=== PATIENT | female | born 1970 | race African-American/Black ===

== ENCOUNTER 2016-06-25 21:42 | Emergency (ER) | payer OTHER ==
[~2016-06-25] VITALS: Ht 162.6 cm; Wt 77.1 kg
--- NOTE | 2016-06-25 23:09 | PHYS DOC ---
Past Medical History Past Medical History: Hypertension, P.U.D. Additional Past Medical Histor: chronic neck and back pain, carpal tunnel Past Surgical History: No Surgical History Alcohol Use: None Drug Use: None Adult General Chief Complaint Chief Complaint: HEADACHE HPI HPI Patient is a 46 year old female who presents with complaint of right-sided headache. Patient states that she has history of migraine headaches. Patient's current headache started yesterday and has been constant since onset. Patient states that she has associated nausea area due to pain is throbbing and along the right side of her head. Patient states that her symptoms are consistent with prior history of migraine headaches. Patient denies any associated fever, vision loss, unilateral weakness, chest pain, or shortness of breath. The patient states that she took Tylenol yesterday which provided mild relief of symptoms, however this did not resolve her headache. Patient has not taken any medications for her symptoms today. Review of Systems Review of Systems Constitutional: Denies fever or chills [] Eyes: Denies change in visual acuity, redness, or eye pain [] HENT: Denies nasal congestion or sore throat [] Respiratory: Denies cough or shortness of breath [] Cardiovascular: No additional information not addressed in HPI [] GI: Nausea, denies abdominal pain, vomiting, bloody stools or diarrhea [] : Denies dysuria or hematuria [] Musculoskeletal: Denies back pain or joint pain [] Integument: Denies rash or skin lesions [] Neurologic: Headache, denies focal weakness or sensory changes [] Current Medications Current Medications Current Medications Medications (Trade) Dose Ordered Sig/Eduardo Start Time Stop Time Status Last Admin Dose Admin Diphenhydramine HCl (Benadryl) 25 mg 1X ONCE 06/25/16 23:30 06/25/16 23:31 DC 06/25/16 23:31 25 MG Ketorolac Tromethamine (Toradol Im) 60 mg 1X ONCE 06/25/16 23:30 06/25/16 23:31 DC 06/25/16 23:30 60 MG Prochlorperazine Edisylate (Compazine) 10 mg 1X ONCE 06/25/16 23:30 06/25/16 23:31 DC 06/25/16 23:30 10 MG Allergies Allergies Allergies Coded Allergies Type Severity Reaction Last Updated Verified acetaminophen Allergy Intermediate 06/25/16 No codeine Allergy Intermediate 09/15/15 No hydrocodone Allergy Intermediate 09/15/15 No meloxicam Allergy Intermediate 09/15/15 No ranitidine Allergy Intermediate 09/15/15 No Physical Exam Physical Exam Constitutional: Alert, afebrile, appears in minimal discomfort. [] HENT: Normocephalic, atraumatic, bilateral external ears normal, oropharynx moist, no oral exudates, nose normal. [] Eyes: PERRLA, EOMI, conjunctiva normal, no discharge. [] Neck: Normal range of motion, no tenderness, supple, no stridor. [] Cardiovascular:Heart rate regular rhythm, no murmur [] Lungs & Thorax: Bilateral breath sounds clear to auscultation [] Abdomen: Bowel sounds normal, soft, no tenderness, no masses, no pulsatile masses. [] Skin: Warm, dry, no erythema, no rash. [] Back: No tenderness, no CVA tenderness. [] Extremities: No tenderness, no cyanosis, no clubbing, ROM intact, no edema. [] Neurologic: Alert and oriented X 3, normal motor function, normal sensory function, no focal deficits noted. [] Current Patient Data Vital Signs Vital Signs Date Time Temp Pulse Resp B/P Pulse Ox O2 Delivery O2 Flow Rate FiO2 06/25/16 22:45 98.0 66 20 170/100 100 Room Air 98.0 Lab Values Laboratory Tests Test 06/25/16 23:15 White Blood Count 7.3x10^3/uL (4.0-11.0) Red Blood Count 4.11x10^6/uL (3.50-5.40) Hemoglobin 12.9g/dL (12.0-15.5) Hematocrit 39.3% (36.0-47.0) Mean Corpuscular Volume 96fL (79-100) Mean Corpuscular Hemoglobin 32pg (25-35) Mean Corpuscular Hemoglobin Concent 33g/dL (31-37) Red Cell Distribution Width 13.7% (11.5-14.5) Platelet Count 179x10^3/uL (140-400) Neutrophils (%) (Auto) 59% (31-73) Lymphocytes (%) (Auto) 31% (24-48) Monocytes (%) (Auto) 8% (0-9) Eosinophils (%) (Auto) 1% (0-3) Basophils (%) (Auto) 0% (0-3) Neutrophils # (Auto) 4.3x10^3uL (1.8-7.7) Lymphocytes # (Auto) 2.2x10^3/uL (1.0-4.8) Monocytes # (Auto) 0.6x10^3/uL (0.0-1.1) Eosinophils # (Auto) 0.1x10^3/uL (0.0-0.7) Basophils # (Auto) 0.0x10^3/uL (0.0-0.2) Sodium Level 143mmol/L (136-145) Potassium Level 3.8mmol/L (3.5-5.1) Chloride Level 106mmol/L (98-107) Carbon Dioxide Level 27mmol/L (21-32) Anion Gap 10 (6-14) Blood Urea Nitrogen 17mg/dL (7-20) Creatinine 0.8mg/dL (0.6-1.0) Estimated GFR (Cockcroft-Gault) 92.6 Glucose Level 92mg/dL (70-99) Calcium Level 9.3mg/dL (8.5-10.1) Magnesium Level 1.7mg/dL (1.8-2.4) L Laboratory Tests 06/25/16 23:15 Laboratory Tests 06/25/16 23:15 EKG EKG Not performed [] Radiology/Procedures Radiology/Procedures Not performed [] Course & Med Decision Making Course & Med Decision Making Pertinent Labs and Imaging studies reviewed. (See chart for details) Patient was given Toradol, Compazine, and Benadryl in the emergency department. On reevaluation, patient states her symptoms have improved and she feels much better. Recommended the patient continue on Tylenol and ibuprofen as needed. Advised follow-up with primary doctor in 3 days and return to emergency department for any worsening symptoms. Patient was understanding and in agreement with treatment plan. Dragon Disclaimer Dragon Disclaimer This electronic medical record was generated, in whole or in part, using a voice recognition dictation system. Departure Departure Impression: Primary Impression: Migraine headache Disposition: HOME, SELF-CARE Condition: IMPROVED Referrals: UNKNOWN PCP NAME (PCP) Patient Instructions: Migraine Headache Additional Instructions: Follow-up with your primary doctor in 3 days. Return to the emergency department for any worsening symptoms. Problem Qualifiers Primary Impression: Migraine headache Migraine type: unspecified Status migrainosus presence: without status migrainosus Intractability: not intractable Qualified Code: G43.909 - Migraine, unspecified, not intractable, without status migrainosus ADRIANA BROWN MD Jun 25, 2016 23:09
[2016-06-25] MEDS ORDERED: PROCHLORPERAZINE 10 MG/2 ML VIAL. IM ONE (23:30)
[2016-06-25] MEDS ORDERED: KETOROLAC TROMETHAMINE 60 MG/2 ML SYRINGE. IM ONE (23:30)
[2016-06-25] MEDS ORDERED: DIPHENHYDRAMINE 50 MG/ML VIAL IM ONE (23:30)
[2016-06-25 23:34] LABS: BASO % 0 % (0-3); EOS % 1 % (0-3); HEMATOCRIT 39.3 % (36.0-47.0); HEMOGLOBIN 12.9 g/dL (12.0-15.5); LYMPH # 2.2 x10^3/uL (1.0-4.8); LYMPH % 31 % (24-48); MEAN CORPUSCULAR HEMOGLOBIN 32 pg (25-35); MEAN CORPUSCULAR HGB CONC 33 g/dL (31-37); MEAN CORPUSCULAR VOLUME 96 fL (79-100); MONO % 8 % (0-9); NEUT % 59 % (31-73); PLATELET COUNT 179 x10^3/uL (140-400); RED BLOOD COUNT 4.11 x10^6/uL (3.50-5.40); RED CELL DISTRIBUTION WIDTH 13.7 % (11.5-14.5); WHITE BLOOD COUNT 7.3 x10^3/uL (4.0-11.0)
[2016-06-25 23:37] LABS: CALCIUM 9.3 mg/dL (8.5-10.1); CREATININE 0.8 mg/dL (0.6-1.0); GFR 92.6; MAGNESIUM 1.7 mg/dL (1.8-2.4); POTASSIUM 3.8 mmol/L (3.5-5.1)
[2016-06-26] VITALS: BP 155/86
== END 2016-06-26 00:20 | disposition home or self-care (01) ==
LOC: ER 21:42
DX: G43.909 Migraine, unspecified, not intractable, without status migrainosus (principal); I10 Essential (primary) hypertension; G89.29 Other chronic pain; Z88.5 Allergy status to narcotic agent; Z88.8 Allergy status to other drugs, medicaments and biological substances
CPT/HCPCS: 36415; 80048; 83735; 85027; 96372; 99284; J0780; J1200; J1885

== ENCOUNTER 2016-07-26 13:27 | Emergency (ER) | payer OTHER ==
[~2016-07-26] VITALS: Ht 162.6 cm; Wt 77.1 kg
[2016-07-26] MEDS ORDERED: IV NORMAL SALINE 1000ML BAG 1,000 ML IV ONE (14:15)
[2016-07-26] MEDS ORDERED: DIPHENHYDRAMINE 50 MG/ML VIAL IVP ONE (14:15)
[2016-07-26] MEDS ORDERED: METOCLOPRAMIDE HCL 10 MG/2 ML VIAL. IV ONE (14:15)
--- NOTE | 2016-07-26 14:26 | PHYS DOC ---
Past Medical History Past Medical History: Depression, Hypertension, Migraines, P.U.D. Additional Past Medical Histor: chronic neck and back pain, carpal tunnel Past Surgical History: Other Additional Past Surgical Histo: carpal tunnel surgery Alcohol Use: None Drug Use: None Adult General Chief Complaint Chief Complaint: HEADACHE HPI HPI 38-year-old female presenting to the emergency department today with a migraine similar to her previous migraines. She describes the pain in her head as frontal radiating to the right. It is moderate. She denies vision changes numbness weakness or tingling. Started yesterday. The pain is constant. Review of systems is negative for chest pain shortness of breath nausea vomiting fevers chills. She denies meningismus, neck stiffness. All other review of systems is negative unless otherwise noted in history of present illness. Review of Systems Review of Systems SEE ABOVE. Current Medications Current Medications Current Medications Medications (Trade) Dose Ordered Sig/Eduardo Start Time Stop Time Status Last Admin Dose Admin Diphenhydramine HCl 50 mg 50 mg 1X ONCE 07/26/16 14:15 07/26/16 14:16 DC 07/26/16 14:40 50 MG Metoclopramide HCl (Reglan) 20 mg 1X ONCE 07/26/16 14:15 07/26/16 14:16 DC 07/26/16 14:38 20 MG Sodium Chloride (Iv Sodium Chloride 0.9% 1000ml Bag) 1,000 ml @ 1,000 mls/hr 1X ONCE 07/26/16 14:15 07/26/16 15:14 07/26/16 14:45 1,000 MLS/HR Allergies Allergies Allergies Coded Allergies Type Severity Reaction Last Updated Verified acetaminophen Allergy Intermediate 07/26/16 No codeine Allergy Intermediate 07/26/16 No hydrocodone Allergy Intermediate 07/26/16 No meloxicam Allergy Intermediate 07/26/16 No pork derived (porcine) Allergy Intermediate 07/26/16 Yes ranitidine Allergy Intermediate 07/26/16 No shellfish derived Allergy Intermediate 07/26/16 Yes lactase Allergy Unknown 07/26/16 Yes Physical Exam Physical Exam Constitutional: Well developed, well nourished, no acute distress, non-toxic appearance. [] HENT: Normocephalic, atraumatic, bilateral external ears normal, oropharynx moist, no oral exudates, nose normal. Eyes: PERRLA, EOMI, conjunctiva normal, no discharge. Neck: Normal range of motion, no tenderness, supple, no stridor. Cardiovascular:Heart rate regular rhythm, no murmur [] Lungs & Thorax: Bilateral breath sounds clear to auscultation Abdomen: Bowel sounds normal, soft, no tenderness, no masses, no pulsatile masses. Skin: Warm, dry, no erythema, no rash. Back: No tenderness, no CVA tenderness. [] Extremities: No tenderness, no cyanosis, no clubbing, ROM intact, no edema. Neurologic: Mental status: Awake oriented and alert x3 Cranial nerves: Extraocular movements intact, eyebrows donavan bilaterally smile symmetric, uvula elevation, shoulder shrug intact, tongue protrusion normal Sensation: equal and normal in all extremities Strength: 5/5 in upper and lower extremities bilaterally Psychologic: Affect normal, judgement normal, mood normal. Current Patient Data Vital Signs Vital Signs Date Time Temp Pulse Resp B/P Pulse Ox O2 Delivery O2 Flow Rate FiO2 07/26/16 13:37 98.0 68 20 140/95 98 Room Air 98.0 EKG EKG [] Radiology/Procedures Radiology/Procedures [] Course & Med Decision Making Course & Med Decision Making Pertinent Labs and Imaging studies reviewed. (See chart for details) [] 38-year-old female presenting with signs and symptoms similar to previous migraine. IV fluids along with nausea and pain medication given in the emergency department which resolved her symptoms. She was subsequent discharged home to follow up with her PCP. Dragon Disclaimer Dragon Disclaimer This electronic medical record was generated, in whole or in part, using a voice recognition dictation system. Departure Departure Impression: Primary Impression: Migraine headache Disposition: 01 HOME, SELF-CARE Condition: STABLE Referrals: SHANI HICKEY (PCP) Patient Instructions: Migraine Headache Additional Instructions: Thank you for allowing us to participate in your care today. Followup with your primary care physician in 3 days if your symptoms do not improve. If you do not have a primary care provider you can ask for a list of our primary care providers. Return to the emergency department you have any new or concerning findings. This should be evaluated by the primary care physician and any necessary consulting services for continued management within a few days after discharge. Return to emergency room if you have any new or concerning symptoms including but not limited to fever, chills, nausea, vomiting, intractable pain, any new rashes, chest pain, shortness of air, uncontrolled bleeding, difficulty breathing, and/or vision loss. AUDREY CASTANEDA MD Jul 26, 2016 14:26
[2016-07-26 15:45] VITALS: BP 143/75
== END 2016-07-26 15:50 | disposition home or self-care (01) ==
LOC: ER 13:27
DX: G43.909 Migraine, unspecified, not intractable, without status migrainosus (principal); F32.9 Major depressive disorder, single episode, unspecified; I10 Essential (primary) hypertension; G89.29 Other chronic pain; Z88.5 Allergy status to narcotic agent; Z91.011 Allergy to milk products; Z91.013 Allergy to seafood; Z91.018 Allergy to other foods
CPT/HCPCS: 96361; 96374; 96375; 99284; J1200; J2765; J7030

== ENCOUNTER 2016-12-18 19:58 | Emergency (ER) | payer OTHER ==
[2016-12-18] MEDS ORDERED: diphenhydrAMINE 50 MG/ML VIAL IVP ONE (20:15)
[2016-12-18] MEDS ORDERED: PROCHLORPERAZINE 10 MG/2 ML VIAL. IV ONE (20:15)
[2016-12-18] MEDS ORDERED: IV NORMAL SALINE 1000ML BAG 1,000 ML IV ONE (20:15)
[2016-12-18] MEDS ORDERED: KETOROLAC TROMETHAMINE 30 MG/ML INJ. IV ONE (20:30)
--- NOTE | 2016-12-18 20:41 | PHYS DOC ---
Past Medical History Past Medical History: Asthma, Depression, Hypertension, Migraines, P.U.D. Additional Past Medical Histor: chronic neck and back pain, carpal tunnel Past Surgical History: Other Additional Past Surgical Histo: carpal tunnel surgery Alcohol Use: None Drug Use: None Adult General Chief Complaint Chief Complaint: HEADACHE HPI HPI Patient is a 46 year old female presenting to the emergency department for evaluation of headache nausea and vomiting. She has a history of chronic migraine headaches and this feels the same as prior migraine headaches with no new symptoms. She has some nonbloody nonbilious emesis but she denies any fevers chills neck stiffness unilateral weakness numbness tingling or vision changes. She does not know of any particular cocktail that works her does not work. Patient is in no obvious distress with normal vital signs. Review of Systems Review of Systems Constitutional: Denies fever or chills [] Respiratory: Denies cough or shortness of breath [] Cardiovascular: No additional information not addressed in HPI [] GI: Denies abdominal pain, nausea, vomiting, bloody stools or diarrhea [] Musculoskeletal: Denies back pain or joint pain [] Integument: Denies rash or skin lesions [] Neurologic: Denies headache, focal weakness or sensory changes [] Current Medications Current Medications Current Medications Medications (Trade) Dose Ordered Sig/Eduardo Start Time Stop Time Status Last Admin Dose Admin Diphenhydramine HCl (Benadryl) 50 mg 1X ONCE 12/18/16 20:15 12/18/16 20:16 DC 12/18/16 20:27 50 MG Ketorolac Tromethamine (Toradol) 30 mg 1X ONCE 12/18/16 20:30 12/18/16 20:31 DC 12/18/16 20:22 30 MG Prochlorperazine Edisylate (Compazine) 10 mg 1X ONCE 12/18/16 20:15 12/18/16 20:16 DC 12/18/16 20:25 10 MG Sodium Chloride 1,000 ml @ 1,000 mls/hr 1X ONCE 12/18/16 20:15 12/18/16 21:14 12/18/16 20:22 1,000 MLS/HR Allergies Allergies Allergies Coded Allergies Type Severity Reaction Last Updated Verified acetaminophen Allergy Intermediate 07/26/16 No codeine Allergy Intermediate 07/26/16 No hydrocodone Allergy Intermediate 07/26/16 No meloxicam Allergy Intermediate 12/18/16 No pork derived (porcine) Allergy Intermediate 07/26/16 Yes ranitidine Allergy Intermediate 07/26/16 No shellfish derived Allergy Intermediate 07/26/16 Yes lactase Allergy Unknown 07/26/16 Yes Physical Exam Physical Exam Constitutional: Well developed, well nourished, no acute distress, non-toxic appearance. [] Cardiovascular:Heart rate regular rhythm, no murmur [] Lungs & Thorax: Bilateral breath sounds clear to auscultation [] Abdomen: Bowel sounds normal, soft, no tenderness, no masses, no pulsatile masses. [] Skin: Warm, dry, no erythema, no rash. [] Back: No tenderness, no CVA tenderness. [] Extremities: No tenderness, no cyanosis, no clubbing, ROM intact, no edema. [] Neurologic: Alert and oriented X 3, normal motor function, normal sensory function, no focal deficits noted. [] Current Patient Data Vital Signs Vital Signs Date Time Temp Pulse Resp B/P (MAP) Pulse Ox O2 Delivery O2 Flow Rate FiO2 12/18/16 20:03 98.2 78 18 154/82 (106) 97 Room Air 98.2 EKG EKG [] Radiology/Procedures Radiology/Procedures [] Course & Med Decision Making Course & Med Decision Making Patient will get Toradol Compazine and Benadryl IV fluids and then be reassessed. On reassessment 10 minutes after getting medications her pain is down to a 5 and she is able to tolerate fluids with no difficulty. He has repeat normal neurologic exam and given she is feeling better with a benign physical exam she' ll be discharged with Zofran and Excedrin and told to follow with a neurologist and come back to the ER sooner with worsening pain fevers vomiting or other general concerns. Dragon Disclaimer Dragon Disclaimer This electronic medical record was generated, in whole or in part, using a voice recognition dictation system. Departure Departure Impression: Primary Impression: Migraine headache Disposition: 01 HOME, SELF-CARE Condition: GOOD Referrals: SENIA ARMSTRONG MD Patient Instructions: Migraine Headache Additional Instructions: TAKE 400MG OF IBUPROFEN EVERY 6 HOURS FOR PAIN. Scripts Ondansetron (ZOFRAN ODT) 4 Mg Tab.rapdis 4 MG PO BID Y for NAUSEA/VOMITING, #14 TAB Prov: KEVIN GARCÍA DO 12/18/16 Problem Qualifiers Primary Impression: Migraine headache Migraine type: without aura Status migrainosus presence: without status migrainosus Intractability: not intractable Qualified Codes: G43.009 - Migraine without aura, not intractable, without status migrainosus KEVIN GARCÍA DO Dec 18, 2016 20:41
[2016-12-18] MEDS ORDERED: ONDA4TAB10 PO (20:48)
[2016-12-18 20:59] VITALS: BP 145/79
== END 2016-12-18 21:14 | disposition home or self-care (01) ==
LOC: ER 19:58
DX: G43.909 Migraine, unspecified, not intractable, without status migrainosus (principal); I10 Essential (primary) hypertension; J45.909 Unspecified asthma, uncomplicated; F32.9 Major depressive disorder, single episode, unspecified; G89.29 Other chronic pain; Z87.11 Personal history of peptic ulcer disease; Z88.6 Allergy status to analgesic agent; Z88.5 Allergy status to narcotic agent; Z91.013 Allergy to seafood; Z88.4 Allergy status to anesthetic agent; Z91.011 Allergy to milk products; Z88.8 Allergy status to other drugs, medicaments and biological substances
CPT/HCPCS: 96361; 96374; 96375; 99284; J0780; J1200; J1885; J7030

== ENCOUNTER 2017-04-02 09:58 | Emergency (ER) | payer MEDICARE, OTHER ==
[~2017-04-02] VITALS: Ht 162.6 cm; Wt 81.3 kg
[~2017-04-02 09:58] MED LIST: ONDA4TAB10 PO
[2017-04-02] MEDS ORDERED: LIDO:MAALOX:DONNATAL 1:1:1 15 ML SINGLE DOSE SWSW ONE (10:30)
[2017-04-02] MEDS ORDERED: IV NORMAL SALINE 1000ML BAG 1,000 ML IV ONE (10:30)
[2017-04-02] MEDS ORDERED: ONDANSETRON PF 4 MG/2 ML VIAL. IV ONE (10:30)
[2017-04-02 10:39] LABS: BASO % 0 % (0-3); EOS % 0 % (0-3); HEMATOCRIT 43.4 % (36.0-47.0); HEMOGLOBIN 14.5 g/dL (12.0-15.5); LYMPH # 2.6 x10^3/uL (1.0-4.8); LYMPH % 23 % (24-48); MEAN CORPUSCULAR HEMOGLOBIN 32 pg (25-35); MEAN CORPUSCULAR HGB CONC 33 g/dL (31-37); MEAN CORPUSCULAR VOLUME 96 fL (79-100); MONO % 6 % (0-9); NEUT % 70 % (31-73); PLATELET COUNT 253 x10^3/uL (140-400); RED BLOOD COUNT 4.51 x10^6/uL (3.50-5.40); RED CELL DISTRIBUTION WIDTH 13.7 % (11.5-14.5); WHITE BLOOD COUNT 11.2 x10^3/uL (4.0-11.0)
[2017-04-02 10:44] LABS: BILIRUBIN,URINE NEGATIVE (NEG); GLUCOSE,URINE NEGATIVE (NEG); NITRITE,URINE NEGATIVE (NEG); PH,URINE 6.5; PROTEIN,URINE NEGATIVE (NEG-TRACE); UROBILINOGEN,URINE 0.2 mg/dL (0.2 mg/dL)
[2017-04-02 10:50] LABS: BARBITURATES NEG (NEG); BENZODIAZEPINES NEG (NEG); CANNABINOIDS POS (NEG); COCAINE NEG (NEG); METHADONE NEG (NEG); OPIATES NEG (NEG); PHENCYCLIDINE NEG (NEG)
[2017-04-02 10:54] LABS: BACTERIA,URINE FEW /HPF (0-FEW); SQUAMOUS EPITHELIAL CELL,UR FEW /LPF; WBC,URINE OCC /HPF (0-4)
[2017-04-02 10:57] LABS: CREATININE 0.8 mg/dL (0.6-1.0); GFR 92.2; POTASSIUM 3.5 mmol/L (3.5-5.1)
[2017-04-02 11:03] LABS: ALBUMIN 3.8 g/dL (3.4-5.0); ALBUMIN/GLOBULIN RATIO 0.9 (1.0-1.7); TOTAL BILIRUBIN 0.2 mg/dL (0.2-1.0); TOTAL PROTEIN 8.2 g/dL (6.4-8.2)
--- NOTE | 2017-04-02 11:14 | RAD ---
Abdominal ultrasound, 04/02/2017: History: Right upper quadrant pain The gallbladder is within normal limits in size. There is no sonographic evidence of cholelithiasis. The common hepatic duct is of normal caliber. The visualized portions of the liver, pancreas, spleen and both kidneys are unremarkable. The abdominal aorta and inferior vena cava show no abnormality. No free fluid is evident in the abdomen. IMPRESSION: No significant abnormality is detected.
[2017-04-02] MEDS ORDERED: ONDA4TAB10 SL (12:28)
[2017-04-02] MEDS ORDERED: OMEP20CA9 PO (12:28)
--- NOTE | 2017-04-02 12:28 | PHYS DOC ---
Past Medical History Past Medical History: Asthma, Depression, Hypertension, Migraines, P.U.D. Additional Past Medical Histor: chronic neck and back pain, carpal tunnel Past Surgical History: Other Additional Past Surgical Histo: carpal tunnel surgery Alcohol Use: None Drug Use: None Adult General Chief Complaint Chief Complaint: GI PROBLEM HPI HPI Patient is a 47 year old female with history of hypertension, asthma, depression, acid reflux, stomach ulcers, who presents today with 8 out of 10 intermittent throbbing right upper quadrant abdominal pain for the last 1 month. Patient's also complaining of intermittent episodes of nausea and vomiting. Denies any fever. She states she is an appointment with the GI specialist on May 02, 2017. Review of Systems Review of Systems Constitutional: Denies fever or chills [] Eyes: Denies change in visual acuity, redness, or eye pain [] HENT: Denies nasal congestion or sore throat [] Respiratory: Denies cough or shortness of breath [] Cardiovascular: No additional information not addressed in HPI [] GI: Right upper quadrant abdominal pain with nausea and vomiting, denies bloody stools or diarrhea [] : Denies dysuria or hematuria [] Musculoskeletal: Denies back pain or joint pain [] Integument: Denies rash or skin lesions [] Neurologic: Denies headache, focal weakness or sensory changes [] All other systems were reviewed and found to be within normal limits, except as documented in this note. Current Medications Current Medications Current Medications Medications (Trade) Dose Ordered Sig/Eduardo Start Time Stop Time Status Last Admin Dose Admin Multi-Ingredient Mouthwash/Gargle (Gi Cocktail Single Dose) 15 ml 1X ONCE 04/02/17 10:30 04/02/17 10:31 DC 04/02/17 10:35 15 ML Ondansetron HCl (Zofran) 4 mg 1X ONCE 04/02/17 10:30 04/02/17 10:31 DC 04/02/17 10:34 4 MG Sodium Chloride 1,000 ml @ 1,000 mls/hr 1X ONCE 04/02/17 10:30 04/02/17 11:29 DC 04/02/17 10:28 1,000 MLS/HR Allergies Allergies Allergies Coded Allergies Type Severity Reaction Last Updated Verified acetaminophen Allergy Intermediate 07/26/16 No codeine Allergy Intermediate 07/26/16 No hydrocodone Allergy Intermediate 07/26/16 No meloxicam Allergy Intermediate 12/18/16 No pork derived (porcine) Allergy Intermediate 07/26/16 Yes ranitidine Allergy Intermediate 07/26/16 No shellfish derived Allergy Intermediate 07/26/16 Yes lactase Allergy Unknown 07/26/16 Yes Physical Exam Physical Exam Constitutional: Well developed, well nourished, no acute distress, non-toxic appearance. [] HENT: Normocephalic, atraumatic, bilateral external ears normal, oropharynx moist, no oral exudates, nose normal. [] Eyes: PERRLA, EOMI, conjunctiva normal, no discharge. [] Neck: Normal range of motion, no tenderness, supple, no stridor. [] Cardiovascular:Heart rate regular rhythm, no murmur [] Lungs & Thorax: Bilateral breath sounds clear to auscultation [] Abdomen: Bowel sounds normal, soft, no tenderness, no masses, no pulsatile masses. [] Skin: Warm, dry, no erythema, no rash. [] Back: No tenderness, no CVA tenderness. [] Extremities: No tenderness, no cyanosis, no clubbing, ROM intact, no edema. [] Neurologic: Alert and oriented X 3, normal motor function, normal sensory function, no focal deficits noted. [] Psychologic: Affect normal, judgement normal, mood normal. [] Current Patient Data Vital Signs Vital Signs Date Time Temp Pulse Resp B/P (MAP) Pulse Ox O2 Delivery O2 Flow Rate FiO2 04/02/17 10:36 69 20 103/66 (78) 100 Room Air 04/02/17 10:05 98.4 98.4 Lab Values Laboratory Tests Test 04/02/17 10:07 04/02/17 10:27 04/02/17 10:31 Urine Collection Type Void Urine Color Yellow Urine Clarity Clear Urine pH 6.5 Urine Specific Sp[place] 1.010 Urine Protein Negative mg/dL (NEG-TRACE) Urine Glucose (UA) Negative mg/dL (NEG) Urine Ketones (Stick) Negative mg/dL (NEG) Urine Blood Moderate (NEG) Urine Nitrite Negative (NEG) Urine Bilirubin Negative (NEG) Urine Urobilinogen Dipstick 0.2 mg/dL (0.2 mg/dL) Urine Leukocyte Esterase Negative (NEG) Urine RBC 3-5 /HPF (0-2) Urine WBC Occ /HPF (0-4) Urine Squamous Epithelial Cells Few /LPF Urine Bacteria Few /HPF (0-FEW) Urine Hyaline Casts Occasional /HPF Urine Mucus Slight /LPF Urine Opiates Screen Neg (NEG) Urine Methadone Screen Neg (NEG) Urine Barbiturates Neg (NEG) Urine Phencyclidine Screen Neg (NEG) Urine Amphetamine/Methamphetamine Neg (NEG) Urine Benzodiazepines Screen Neg (NEG) Urine Cocaine Screen Neg (NEG) Urine Cannabinoids Screen Pos (NEG) Urine Ethyl Alcohol Neg (NEG) White Blood Count 11.2 x10^3/uL (4.0-11.0) H Red Blood Count 4.51 x10^6/uL (3.50-5.40) Hemoglobin 14.5 g/dL (12.0-15.5) Hematocrit 43.4 % (36.0-47.0) Mean Corpuscular Volume 96 fL (79-100) Mean Corpuscular Hemoglobin 32 pg (25-35) Mean Corpuscular Hemoglobin Concent 33 g/dL (31-37) Red Cell Distribution Width 13.7 % (11.5-14.5) Platelet Count 253 x10^3/uL (140-400) Neutrophils (%) (Auto) 70 % (31-73) Lymphocytes (%) (Auto) 23 % (24-48) L Monocytes (%) (Auto) 6 % (0-9) Eosinophils (%) (Auto) 0 % (0-3) Basophils (%) (Auto) 0 % (0-3) Neutrophils # (Auto) 7.8 x10^3uL (1.8-7.7) H Lymphocytes # (Auto) 2.6 x10^3/uL (1.0-4.8) Monocytes # (Auto) 0.7 x10^3/uL (0.0-1.1) Eosinophils # (Auto) 0.0 x10^3/uL (0.0-0.7) Basophils # (Auto) 0.0 x10^3/uL (0.0-0.2) Sodium Level 140 mmol/L (136-145) Potassium Level 3.5 mmol/L (3.5-5.1) Chloride Level 103 mmol/L (98-107) Carbon Dioxide Level 27 mmol/L (21-32) Anion Gap 10 (6-14) Blood Urea Nitrogen 13 mg/dL (7-20) Creatinine 0.8 mg/dL (0.6-1.0) Estimated GFR (Cockcroft-Gault) 92.2 BUN/Creatinine Ratio 16 (6-20) Glucose Level 92 mg/dL (70-99) Calcium Level 10.0 mg/dL (8.5-10.1) Total Bilirubin 0.2 mg/dL (0.2-1.0) Aspartate Amino Transferase (AST) 14 U/L (15-37) L Alanine Aminotransferase (ALT) 14 U/L (14-59) Alkaline Phosphatase 89 U/L (46-116) Total Protein 8.2 g/dL (6.4-8.2) Albumin 3.8 g/dL (3.4-5.0) Albumin/Globulin Ratio 0.9 (1.0-1.7) L Lipase 133 U/L (73-393) Ethyl Alcohol Level < 10 mg/dL (0-10) POC Urine HCG, Qualitative Hcg negative (Negative) Laboratory Tests 04/02/17 10:27 Laboratory Tests 04/02/17 10:27 EKG EKG [] Radiology/Procedures Radiology/Procedures [] Course & Med Decision Making Course & Med Decision Making Pertinent Labs and Imaging studies reviewed. (See chart for details) This is a 47-year-old female patient with right upper quadrant abdominal pain with known history of stomach ulcer. She is on omeprazole. CBC CMP lipase urine analysis with no acute findings. Abdominal ultrasound was negative for any acute findings. Highly suspect her pain is from her chronic stomach ulcers. Recommended following up with the GI specialist, she states she has an appointment on May 02, 2017. Discharged with Zofran and omeprazole. Provided return precautions and discharged in stable condition. Dragon Disclaimer Dragon Disclaimer This electronic medical record was generated, in whole or in part, using a voice recognition dictation system. Departure Departure Impression: Primary Impression: Right upper quadrant abdominal pain Disposition: 01 HOME, SELF-CARE Condition: STABLE Referrals: SHANI HICKEY (PCP) Follow-up with your own doctor as soon as you can Patient Instructions: Abdominal Pain (Nonspecific) Additional Instructions: You were seen for ongoing abdominal pain. Ultrasound was negative for any acute findings, your labs were negative for any acute findings. Please follow-up with the GI specialist as scheduled on May 02, 2017. Return to the ED symptoms worsen. Scripts Omeprazole (OMEPRAZOLE) 20 Mg Capsule.dr 1 CAP PO DAILY, #30 CAP 5 Refills Prov: VANESA CARDENAS APRN 04/02/17 Ondansetron (ZOFRAN ODT) 4 Mg Tab.rapdis 1 TAB SL Q8HRS, #15 TAB Prov: VANESA CARDENAS APRN 04/02/17 VANESA CARDENAS APRN Apr 02, 2017 12:28
[2017-04-02 12:48] VITALS: BP 130/80
== END 2017-04-02 12:55 | disposition home or self-care (01) ==
LOC: ER 09:58
DX: R10.11 Right upper quadrant pain (principal); R11.2 Nausea with vomiting, unspecified; J45.909 Unspecified asthma, uncomplicated; F32.9 Major depressive disorder, single episode, unspecified; I10 Essential (primary) hypertension; G43.909 Migraine, unspecified, not intractable, without status migrainosus; G89.29 Other chronic pain; K21.9 Gastro-esophageal reflux disease without esophagitis; Z88.6 Allergy status to analgesic agent; Z88.5 Allergy status to narcotic agent; Z91.011 Allergy to milk products; Z87.11 Personal history of peptic ulcer disease; Z91.013 Allergy to seafood; Z91.018 Allergy to other foods
CPT/HCPCS: 36415; 76700; 80053; 80307; 81001; 81025; 83690; 85025; 96361; 96374; 99285; G0480; J2405; J7030; G0479

== ENCOUNTER 2017-08-08 18:10 | Emergency (ER) | payer MEDICARE, OTHER ==
[2017-08-08 18:51] LABS: ADD MAN DIFF? NO
[2017-08-08 18:54] LABS: BASO # 0.1 x10^3/uL (0.0-0.2); BASO % 1 % (0-3); EOS % 0 % (0-3); HEMATOCRIT 41.3 % (36.0-47.0); LYMPH # 2.2 x10^3/uL (1.0-4.8); LYMPH % 20 % (24-48); MEAN CORPUSCULAR HEMOGLOBIN 32 pg (25-35); MEAN CORPUSCULAR HGB CONC 34 g/dL (31-37); MEAN CORPUSCULAR VOLUME 95 fL (79-100); MONO # 0.5 x10^3/uL (0.0-1.1); MONO % 4 % (0-9); NEUT # 8.5 x10^3uL (1.8-7.7); NEUT % 76 % (31-73); PLATELET COUNT 198 x10^3/uL (140-400); RED BLOOD COUNT 4.35 x10^6/uL (3.50-5.40); RED CELL DISTRIBUTION WIDTH 14.6 % (11.5-14.5); WHITE BLOOD COUNT 11.3 x10^3/uL (4.0-11.0)
[2017-08-08 19:09] LABS: ETHANOL < 10 mg/dL (0-10)
[2017-08-08] MEDS: diphenhydrAMINE 50 MG/ML VIAL IVP (19:10)
[2017-08-08] MEDS: PROMETHAZINE 25 MG in IV NORMAL SALINE 50ML 50 ML IV (19:10)
[2017-08-08] MEDS: fentaNYL PF VIAL 100 MCG/2 ML VIAL IV ×2 (19:10→21:18)
[2017-08-08] MEDS: IV NORMAL SALINE 1000ML BAG 1,000 ML IV (19:11)
[2017-08-08 19:13] LABS: ANION GAP 13 (6-14); BLOOD UREA NITROGEN 7 mg/dL (7-20); BUN/CREATININE RATIO 9 (6-20); CALCIUM 9.2 mg/dL (8.5-10.1); CARBON DIOXIDE 23 mmol/L (21-32); CHLORIDE 108 mmol/L (98-107); CREATININE 0.8 mg/dL (0.6-1.0); GFR 92.2; GLUCOSE 123 mg/dL (70-99); POTASSIUM 3.6 mmol/L (3.5-5.1); SODIUM 144 mmol/L (136-145)
[2017-08-08 19:16] LABS: TROPONINI < 0.017 ng/mL (0.000-0.055)
[2017-08-08 19:22] LABS: NT-PRO BNP 170 pg/mL (0-124)
[2017-08-08 19:28] LABS: ALBUMIN 3.6 g/dL (3.4-5.0); ALK PHOS 70 U/L (46-116); ALT (SGPT) 15 U/L (14-59); AST (SGOT) 16 U/L (15-37); CREATINE KINASE 139 U/L (26-192); LIPASE 100 U/L (73-393); MAGNESIUM 1.7 mg/dL (1.8-2.4); TOTAL BILIRUBIN 0.6 mg/dL (0.2-1.0); TOTAL PROTEIN 7.1 g/dL (6.4-8.2)
[2017-08-08] MEDS: KETOROLAC 30 MG/ML INJ. IV (21:19)
[2017-08-08] MEDS: SUMAtriptan. 6 MG/0.5 ML VIAL SQ (22:07)
== END 2017-08-08 22:35 | disposition home or self-care (01) ==
LOC: ER 18:10
DX: G43.909 Migraine, unspecified, not intractable, without status migrainosus (principal); Z88.5 Allergy status to narcotic agent; Z91.041 Radiographic dye allergy status; Z91.011 Allergy to milk products; Z88.8 Allergy status to other drugs, medicaments and biological substances; Z91.018 Allergy to other foods; Z88.6 Allergy status to analgesic agent
CPT/HCPCS: 36415; 70450; 80053; 82550; 83690; 83735; 83880; 84484; 85025; 93005; 96365; 96372; 96375; 96376; 99285-25; G0480; J1200; J1885; J2550; J3010; J3030; J7030

== ENCOUNTER → 2017-08-26 | Outpatient (CLI) | payer MEDICARE, OTHER ==
[2017-08-26] MEDS: GADOBUTROL 7.5 MMOL/7.5 ML VIAL IV (10:27)
== END | disposition home or self-care (01) ==
LOC: MRI 15:56
DX: H54.7 Unspecified visual loss (principal); I10 Essential (primary) hypertension; G43.909 Migraine, unspecified, not intractable, without status migrainosus
CPT/HCPCS: 70553; A9585

== ENCOUNTER 2017-10-11 18:39 | Emergency (ER) | payer MEDICARE, OTHER | END 2017-10-11 19:57 | disposition left against medical advice (07) | LOC: ER 19:57 | DX: R51 Headache (principal); Z53.21 Procedure and treatment not carried out due to patient leaving prior to being seen by health care provider ==

== ENCOUNTER → 2017-10-17 | Outpatient (CLI) | payer MEDICARE, MEDICAID, OTHER ==
[2017-10-17 17:24] LABS: GLUCOSE 94 mg/dL (70-99)
[2017-10-17 17:24] LABS: BLOOD UREA NITROGEN 8 mg/dL (7-20); CREATININE 0.8 mg/dL (0.6-1.0); GFR 92.2
[2017-10-17 18:00] LABS: BARBITURATES NEG (NEG); BENZODIAZEPINES POS (NEG); CANNABINOIDS POS (NEG); COCAINE NEG (NEG); METHADONE NEG (NEG); OPIATES NEG (NEG); PHENCYCLIDINE NEG (NEG)
[2017-10-17 18:03] LABS: AMPHETAMINE/METHAMPHETAMINE NEG (NEG); ETHANOL, URINE NEG (NEG)
[2017-10-17 18:50] LABS: SEDIMENTATION RATE 10 (0-25)
== END | disposition home or self-care (01) ==
LOC: LAB 16:08
DX: R51 Headache (principal); I10 Essential (primary) hypertension; J45.909 Unspecified asthma, uncomplicated; K21.9 Gastro-esophageal reflux disease without esophagitis; Z87.11 Personal history of peptic ulcer disease; Z79.899 Other long term (current) drug therapy
CPT/HCPCS: 36415; 80307; 82565; 82947; 84520; 85651

== ENCOUNTER 2017-12-18 22:37 | Emergency (ER) | payer MEDICARE, MEDICAID ==
[~2017-12-18] VITALS: Ht 162.6 cm; Wt 81.2 kg
[~2017-12-18 22:37] MED LIST changes: +OMEP20CA9 PO; +ONDA4TAB10 SL; +SUMA50TA3 PO
[2017-12-18 22:58] VITALS: BP 123/75
== END 2017-12-18 23:24 | disposition left against medical advice (07) ==
LOC: ER 22:37
DX: R42 Dizziness and giddiness (principal); Z53.21 Procedure and treatment not carried out due to patient leaving prior to being seen by health care provider

== ENCOUNTER 2019-08-08 14:58 | Emergency (ER) | payer MEDICAID, MEDICARE ==
[~2019-08-08] VITALS: Ht 160 cm; Wt 95.4 kg
[~2019-08-08 14:58] MED LIST changes: +OMEP20CA16 PO; -OMEP20CA9 PO
[2019-08-08 15:10] VITALS: BP 160/75
[2019-08-08] MEDS ORDERED: BUDE10.2 IH (15:31)
--- NOTE | 2019-08-08 15:32 | PHYS DOC ---
Past Medical History Past Medical History: Anxiety, Asthma, Hypertension, P.U.D., Other Additional Past Medical Histor: panic attack, carpel tunnel bilateral, sciatica, bulging disc cervial Past Surgical History: Other Additional Past Surgical Histo: bilater carpel tunnel, left foot Smoking Status: Former Smoker Alcohol Use: None Drug Use: None Adult General Chief Complaint Chief Complaint: ANXIETY/PANIC ATTACK HPI HPI Patient is a 49 year old female with history of anxiety, hypertension, asthma, who presents to the ED today to be evaluated for an anxiety attack after having a verbal altercation with a female partner. Patient denies any suicidal or homicidal ideations. Review of Systems Review of Systems Constitutional: Denies fever or chills [] Eyes: Denies change in visual acuity, redness, or eye pain [] HENT: Denies nasal congestion or sore throat [] Respiratory: Denies cough or shortness of breath [] Cardiovascular: No additional information not addressed in HPI [] GI: Denies abdominal pain, nausea, vomiting, bloody stools or diarrhea [] : Denies dysuria or hematuria [] Musculoskeletal: Denies back pain or joint pain [] Integument: Denies rash or skin lesions [] Neurologic: Denies headache, focal weakness or sensory changes [] Psych: Reports anxiety All other systems were reviewed and found to be within normal limits, except as documented in this note. Allergies Allergies Allergies Coded Allergies Type Severity Reaction Last Updated Verified acetaminophen Allergy Intermediate 07/26/16 No codeine Allergy Intermediate 07/26/16 No hydrocodone Allergy Intermediate 07/26/16 No meloxicam Allergy Intermediate 12/18/16 No pork derived (porcine) Allergy Intermediate 07/26/16 Yes ranitidine Allergy Intermediate 07/26/16 No shellfish derived Allergy Intermediate 07/26/16 Yes lactase Allergy Unknown 07/26/16 Yes Physical Exam Physical Exam Constitutional: Well developed, well nourished, no acute distress, non-toxic appearance. [] HENT: Normocephalic, atraumatic, bilateral external ears normal, oropharynx moist, no oral exudates, nose normal. [] Eyes: PERRLA, EOMI, conjunctiva normal, no discharge. [] Neck: Normal range of motion, no tenderness, supple, no stridor. [] Cardiovascular:Heart rate regular rhythm, no murmur [] Lungs & Thorax: Bilateral breath sounds clear to auscultation [] Abdomen: Bowel sounds normal, soft, no tenderness, no masses, no pulsatile masses. [] Skin: Warm, dry, no erythema, no rash. [] Back: No tenderness, no CVA tenderness. [] Extremities: No tenderness, no cyanosis, no clubbing, ROM intact, no edema. [] Neurologic: Alert and oriented X 3, normal motor function, normal sensory function, no focal deficits noted. [] Psychologic: Affect normal, judgement normal, mood normal. [] EKG EKG [] Radiology/Procedures Radiology/Procedures [] Course & Med Decision Making Course & Med Decision Making Pertinent Labs and Imaging studies reviewed. (See chart for details) This is a 49-year-old female patient presenting to the ED today for an anxiety attack after having a verbal altercation with a female partner. Patient has no suicidal or homicidal ideations. She was discharged to home with instructions to follow-up with [facility]. She requested Inhaler prescription, Rx provided. Dragon Disclaimer Dragon Disclaimer This electronic medical record was generated, in whole or in part, using a voice recognition dictation system. Departure Departure Impression: Primary Impression: Anxiety Disposition: 01 HOME, SELF-CARE Condition: STABLE Referrals: SHANI HICKEY (PCP) follow up in 1-2 weeks Patient Instructions: Anxiety and Panic Attacks, [id number] Additional Instructions: You were seen for an anxiety attack. Please follow-up with [facility] in 1 week or your own doctor Scripts Budesonide/Formoterol Fumarate (SYMBICORT 160-4.5 MCG INHALER) 10.2 Gm Hfa.aer.ad 2 PUFF IH BID, #1 INHALER 3 Refills Prov: VANESA CARDENAS APRN 08/08/19 VANESA CARDENAS APRN Aug 08, 2019 15:31
== END 2019-08-08 15:55 | disposition home or self-care (01) ==
LOC: ER 14:58
DX: F41.9 Anxiety disorder, unspecified (principal); J45.909 Unspecified asthma, uncomplicated; I10 Essential (primary) hypertension; Z87.891 Personal history of nicotine dependence; Z88.5 Allergy status to narcotic agent; Z88.6 Allergy status to analgesic agent; Z91.013 Allergy to seafood; Z91.011 Allergy to milk products; Z88.8 Allergy status to other drugs, medicaments and biological substances; Z91.018 Allergy to other foods
CPT/HCPCS: 99283

== ENCOUNTER 2021-03-31 10:39 | Emergency (ER) | payer MEDICAID ==
[~2021-03-31] VITALS: Ht 162.6 cm; Wt 103.6 kg
[~2021-03-31 10:39] MED LIST changes: +BUDE10.2 IH
--- NOTE | 2021-03-31 11:10 | PHYS DOC ---
Past Medical History Past Medical History: Anxiety, Asthma, Hypertension, P.U.D., Other Additional Past Medical Histor: panic attack, carpel tunnel bilateral, sciatica, bulging disc cervial (CONRADO TOMPKINS APRN) Past Surgical History: Other Additional Past Surgical Histo: bilater carpel tunnel, left foot (CONRADO TOMPKINS APRN) Smoking Status: Former Smoker Alcohol Use: None Drug Use: None (CONRADO TOMPKINS APRN) General Adult EDM: Chief Complaint: BLOODY STOOL HPI: HPI: Patient is a 51-year-old female that presents today with a 4-day complaint of blood in stool. Patient states that she has some upper abdominal pain but she is noted blood in her stool over the last 4 days. Patient states that she had a colonoscopy in February 2021 at [facility] and she states that it was normal, she states they also looked at her esophagus at that time but did not have the results of that at this time. Patient has a past medical history of peptic ulcer disease she is currently on Protonix and has been for a number of years. Patient also takes Celebrex on a regular basis as well (CONRADO TOMPKINS DENTAL MANAGER) Review of Systems: Review of Systems: Constitutional: Denies fever or chills. [] Eyes: Denies change in visual acuity. [] HENT: Denies nasal congestion or sore throat. [] Respiratory: Denies cough or shortness of breath. [] Cardiovascular: Denies chest pain or edema. [] GI: Abdominal pain, blood in stool; denies nausea, vomiting or diarrhea [] : Denies dysuria. [] Musculoskeletal: Denies back pain or joint pain. [] Integument: Denies rash. [] Neurologic: Denies headache, focal weakness or sensory changes. [] Endocrine: Denies polyuria or polydipsia. [] Lymphatic: Denies swollen glands. [] Psychiatric: Denies depression or anxiety. [] (CONRADO TOMPKINS APRN) Heart Score: C/O Chest Pain: N/A Risk Factors: Risk Factors: DM, Current or recent (<one month) smoker, HTN, HLP, family history of CAD, obesity. Risk Scores: Score 0 - 3: 2.5% MACE over next 6 weeks - Discharge Home Score 4 - 6: 20.3% MACE over next 6 weeks - Admit for Clinical Observation Score 7 - 10: 72.7% MACE over next 6 weeks - Early Invasive Strategies (CONRADO TOMPKINS APRN) Allergies: Allergies: Allergies Coded Allergies Type Severity Reaction Last Updated Verified acetaminophen Allergy Intermediate 07/26/16 No codeine Allergy Intermediate 07/26/16 No hydrocodone Allergy Intermediate 07/26/16 No meloxicam Allergy Intermediate 12/18/16 No pork derived (porcine) Allergy Intermediate 07/26/16 Yes ranitidine Allergy Intermediate 07/26/16 No shellfish derived Allergy Intermediate 07/26/16 Yes lactase Allergy Unknown 07/26/16 Yes (CONRADO TOMPKINS APRN) Physical Exam: PE: Constitutional: Well developed, well nourished, no acute distress, non-toxic appearance. [] HENT: Normocephalic, atraumatic, bilateral external ears normal, oropharynx moist, no oral exudates, nose normal. [] Eyes: PERRLA, EOMI, conjunctiva normal, no discharge. [] Neck: Normal range of motion, no tenderness, supple, no stridor. [] Cardiovascular:Heart rate regular rhythm, no murmur [] Lungs & Thorax: Bilateral breath sounds clear to auscultation [] Abdomen: Bowel sounds normal, soft, no tenderness, no masses, no pulsatile masses. [] Skin: Warm, dry, no erythema, no rash. [] Back: No tenderness, no CVA tenderness. [] Extremities: No tenderness, no cyanosis, no clubbing, ROM intact, no edema. [] Neurologic: Alert and oriented X 3, normal motor function, normal sensory function, no focal deficits noted. [] Psychologic: Affect normal, judgement normal, mood normal. [] (CONRADO TOMPKINS APRN) Current Patient Data: Labs: Laboratory Tests Test 03/31/21 11:04 03/31/21 11:29 03/31/21 11:35 Stool Occult Blood Positive White Blood Count 9.6 x10^3/uL Red Blood Count 4.26 x10^6/uL Hemoglobin 10.7 g/dL Hematocrit 33.9 % Mean Corpuscular Volume 80 fL Mean Corpuscular Hemoglobin 25 pg Mean Corpuscular Hemoglobin Concent 32 g/dL Red Cell Distribution Width 18.6 % Platelet Count 286 x10^3/uL Neutrophils (%) (Auto) 65 % Lymphocytes (%) (Auto) 26 % Monocytes (%) (Auto) 8 % Eosinophils (%) (Auto) 1 % Basophils (%) (Auto) 0 % Neutrophils # (Auto) 6.2 x10^3/uL Lymphocytes # (Auto) 2.5 x10^3/uL Monocytes # (Auto) 0.7 x10^3/uL Eosinophils # (Auto) 0.1 x10^3/uL Basophils # (Auto) 0.0 x10^3/uL Sodium Level 140 mmol/L Potassium Level 3.6 mmol/L Chloride Level 102 mmol/L Carbon Dioxide Level 30 mmol/L Anion Gap 8 Blood Urea Nitrogen 11 mg/dL Creatinine 0.8 mg/dL Estimated GFR (Cockcroft-Gault) 90.8 BUN/Creatinine Ratio 14 Glucose Level 79 mg/dL Lactic Acid Level 0.7 mmol/L Calcium Level 8.8 mg/dL Total Bilirubin 0.2 mg/dL Aspartate Amino Transf (AST/SGOT) 19 U/L Alanine Aminotransferase (ALT/SGPT) 21 U/L Alkaline Phosphatase 89 U/L Total Protein 7.0 g/dL Albumin 3.2 g/dL Albumin/Globulin Ratio 0.8 Lipase 62 U/L Urine Collection Type Unknown Urine Color Yellow Urine Clarity Cloudy Urine pH 8.5 Urine Specific [place] 1.025 Urine Protein Negative mg/dL Urine Glucose (UA) Negative mg/dL Urine Ketones (Stick) Negative mg/dL Urine Blood Negative Urine Nitrite Negative Urine Bilirubin Negative Urine Urobilinogen Dipstick 1.0 mg/dL Urine Leukocyte Esterase Negative Urine RBC 0 /HPF Urine WBC Occ /HPF Urine Squamous Epithelial Cells Few /LPF Urine Bacteria 0 /HPF Urine Mucus Mod /LPF Current Medications Medications (Trade) Dose Ordered Sig/Eduardo Route PRN Reason Start Time Stop Time Status Last Admin Dose Admin Iohexol (Omnipaque 300 Mg/ml) 75 ml 1X ONCE IV 03/31/21 12:30 03/31/21 12:31 Cancel Info (CONTRAST GIVEN -- Rx MONITORING) 1 each PRN DAILY PRN MC SEE COMMENTS 03/31/21 12:15 04/02/21 12:14 Cancel Vital Signs: Vital Signs Date Time Temp Pulse Resp B/P (MAP) Pulse Ox O2 Delivery O2 Flow Rate FiO2 03/31/21 13:16 80 20 110/56 (74) 97 Room Air 03/31/21 10:56 98.2 83 18 141/64 (89) 98 Room Air 98.2 Vital Signs Date Time Temp Pulse Resp B/P (MAP) Pulse Ox O2 Delivery O2 Flow Rate FiO2 03/31/21 10:56 98.2 83 18 141/64 (89) 98 Room Air 98.2 (CONRADO TOMPKINS DENTAL MANAGER) EKG: EKG: [] (CONRADO TOMPKINS DENTAL MANAGER) Radiology/Procedures: Radiology/Procedures: REASON: abdominal pain and bllod in stool, OIDINE ALLERGY PROCEDURE: CT ABDOMEN PELVIS WO CONTRAST EXAM: Abdomen and pelvis CT without intravenous contrast. HISTORY: Pain. Bloody stools. TECHNIQUE: Computed tomographic images of the abdomen and pelvis were obtained without contrast. Multiplanar reformatting was performed. *One or more of the following individualized dose reduction techniques were utilized for this examination: 1. Automated exposure control. 2. Adjustment of the mA and/or kV according to patient size. 3. Use of iterative reconstruction technique. COMPARISON: None. FINDINGS: Evaluation of the lower thorax is unremarkable. There are small hypodense lesions within the right and left hepatic lobes, the larger of which m easures 9 mm. These are too small to characterize in the absence of contrast. The gallbladder, pancreas, spleen, adrenal glands and kidneys are unremarkable. The stomach is unremarkable. There is no appendicitis. There is no bowel obstruction. There is no abnormal bowel wall thickening. There is a 3.3 cm cyst with adjacent smaller cyst or small cystic component measuring 1.6 cm within the right adnexa, likely ovarian in etiology. There is a 1.5 cm left ovarian follicle. The uterus and urinary bladder are unremarkable. The aorta is normal in caliber. There is no lymphadenopathy. There is a small fat-containing umbilical hernia. There are degenerative changes involving the lower lumbar spine, primarily at L4-L5. IMPRESSION: 1. 3.3 cm cyst with small daughter cyst or loculated cystic component within the right ovary. There is also a 1.5 cm left ovarian follicle. Given the age of the patient, evaluation with a dedicated pelvic sonogram is recommended. 2. Small hypodense lesions within the liver. In the absence of known malignancy, these are likely cysts. 3. Small fat-containing umbilical hernia. Electronically signed by: Adriana Blankenship MD (03/31/2021 12:36 PM) [id number] [] (CONRADO TOMPKINS APRN) Course & Med Decision Making: Course & Med Decision Making Pertinent Labs and Imaging studies reviewed. (See chart for details) [] (CONRADO TOMPKINS APRN) Dragon Disclaimer: Dragon Disclaimer: This electronic medical record was generated, in whole or in part, using a voice recognition dictation system. (CONRADO TOMPKINS APRN) Departure Departure Impression: Primary Impression: Internal hemorrhoid, bleeding Disposition: HOME / SELF CARE / HOMELESS Condition: STABLE Referrals: ANDREW LU (PCP) Patient Instructions: Hemorrhoids, [id number] Additional Instructions: Anusol suppositories use 1 suppository twice daily for 2 weeks Follow-up with your primary care physician or the gastrointestinal specialist that you have seen in the past or Dr. Castro in the next 7 to 10 days if the bleeding continues Return to the emergency department for increased rectal bleeding that include clots, lower abdominal pain, you having dizziness or weakness, your skin becomes cool and pale Scripts Hydrocortisone Acetate (ANUSOL-HC) 25 Mg Supp.rect 1 SUPP RC BID for 14 Days, #28 SUPP 0 Refills Prov: CONRADO TOMPKINS APRN 03/31/21 Attending Signature Attending Signature I have reviewed the PA/CHAIR FRAME BUILDER's note and plan of care. I was available for con sultation as needed during the patient's visit in the emergency department. I agree with the clinical impression, plan, and disposition. (DEDE EVANS DO) CONRADO TOMPKINS APRN Mar 31, 2021 11:10 DEDE EVANS DO Apr 01, 2021 06:35
[2021-03-31 11:42] LABS: BILIRUBIN,URINE NEGATIVE (NEG); CLARITY,URINE CLOUDY; COLOR,URINE YELLOW; NITRITE,URINE NEGATIVE (NEG); PH,URINE 8.5 (<5.0-8.0); PROTEIN,URINE NEGATIVE (NEG-TRACE)
[2021-03-31 11:44] LABS: BASO % 0 % (0-3); EOS # 0.1 x10^3/uL (0.0-0.7); EOS % 1 % (0-3); HEMATOCRIT 33.9 % (36.0-47.0); HEMOGLOBIN 10.7 g/dL (12.0-15.5); LYMPH # 2.5 x10^3/uL (1.0-4.8); LYMPH % 26 % (24-48); MEAN CORPUSCULAR HEMOGLOBIN 25 pg (25-35); MEAN CORPUSCULAR HGB CONC 32 g/dL (31-37); MEAN CORPUSCULAR VOLUME 80 fL (79-100); MONO # 0.7 x10^3/uL (0.0-1.1); MONO % 8 % (0-9); NEUT # 6.2 x10^3/uL (1.8-7.7); NEUT % 65 % (31-73); PLATELET COUNT 286 x10^3/uL (140-400); RED BLOOD COUNT 4.26 x10^6/uL (3.50-5.40); RED CELL DISTRIBUTION WIDTH 18.6 % (11.5-14.5); WHITE BLOOD COUNT 9.6 x10^3/uL (4.0-11.0)
[2021-03-31 11:48] LABS: FECAL OB PT POSITIVE (NEG)
[2021-03-31 11:57] LABS: CALCIUM 8.8 mg/dL (8.5-10.1); CREATININE 0.8 mg/dL (0.6-1.0); GFR 90.8; POTASSIUM 3.6 mmol/L (3.5-5.1)
[2021-03-31 11:58] LABS: BACTERIA,URINE 0 /HPF (0-FEW); RBC,URINE 0 /HPF (0-2); WBC,URINE OCC /HPF (0-4)
[2021-03-31 12:05] LABS: ALBUMIN 3.2 g/dL (3.4-5.0); ALBUMIN/GLOBULIN RATIO 0.8 (1.0-1.7); TOTAL BILIRUBIN 0.2 mg/dL (0.2-1.0)
[2021-03-31] MEDS ORDERED: CONTRAST GIVEN. MC PRN (12:15)
[2021-03-31] MEDS ORDERED: IOHEXOL 300 MG/ML 100ML VIAL. IV ONE (12:30)
--- NOTE | 2021-03-31 12:38 | RAD ---
EXAM: Abdomen and pelvis CT without intravenous contrast. HISTORY: Pain. Bloody stools. TECHNIQUE: Computed tomographic images of the abdomen and pelvis were obtained without contrast. Mult iplanar reformatting was performed. *One or more of the following individualized dose reduction techniques were utilized for this examina tion: 1. Automated exposure control. 2. Adjustment of the mA and/or kV according to patient size. 3. Use of iterative reconstruction technique. COMPARISON: None. FINDINGS: Evaluation of the lower thorax is unremarkable. There are small hypodense lesions within th e right and left hepatic lobes, the larger of which measures 9 mm. These are too small to characteriz e in the absence of contrast. The gallbladder, pancreas, spleen, adrenal glands and kidneys are unrem arkable. The stomach is unremarkable. There is no appendicitis. There is no bowel obstruction. There is no abnormal bowel wall thickening. There is a 3.3 cm cyst with adjacent smaller cyst or small cyst ic component measuring 1.6 cm within the right adnexa, likely ovarian in etiology. There is a 1.5 cm left ovarian follicle. The uterus and urinary bladder are unremarkable. The aorta is normal in calibe r. There is no lymphadenopathy. There is a small fat-containing umbilical hernia. There are degenerat lynn changes involving the lower lumbar spine, primarily at L4-L5. IMPRESSION: 1. 3.3 cm cyst with small daughter cyst or loculated cystic component within the right ovary. There i s also a 1.5 cm left ovarian follicle. Given the age of the patient, evaluation with a dedicated pelv ic sonogram is recommended. 2. Small hypodense lesions within the liver. In the absence of known malignancy, these are likely cys ts. 3. Small fat-containing umbilical hernia. Electronically signed by: Adriana Blankenship MD (03/31/2021 12:36 PM) [id number]
[2021-03-31] MEDS ORDERED: HYDR25SU18 RC (13:04)
[2021-03-31 13:16] VITALS: BP 110/56
== END 2021-03-31 13:35 | disposition home or self-care (01) ==
LOC: ER 10:39
DX: K64.8 Other hemorrhoids (principal); J45.909 Unspecified asthma, uncomplicated; I10 Essential (primary) hypertension; Z87.11 Personal history of peptic ulcer disease; Z88.5 Allergy status to narcotic agent; Z91.013 Allergy to seafood; Z91.011 Allergy to milk products; Z88.8 Allergy status to other drugs, medicaments and biological substances
CPT/HCPCS: 36415; 74176; 80053; 81001; 82274; 83605; 83690; 85025; 99284-25